=== PATIENT | male | born 1995 | race African-American/Black ===

== ENCOUNTER 2021-05-29 23:39 | Emergency (ER) | payer OTHER ==
[~2021-05-29] VITALS: Ht 177.8 cm; Wt 100.0 kg
[2021-05-29] MEDS ORDERED: ISOVUE-370 76% 100ML VIAL As Ordered ONE (23:59)
[2021-05-30 00:15] LABS: BASO % 0.3 % (0.0-1.0); HEMATOCRIT 42.5 % (42.0-52.0); HEMOGLOBIN 13.8 g/dl (13.5-17.5); LYMPH # 2.2 10^3/uL (1.5-5.0); LYMPH % 15.2 % (24.0-44.0); MEAN CORPUSCULAR HEMOGLOBIN 32.1 pg (27.0-33.0); MEAN CORPUSCULAR HGB CONC 32.5 g/dl (32.0-36.5); MEAN CORPUSCULAR VOLUME 98.8 fl (80.0-96.0); MONO # 1.5 10^3/uL (0.0-0.8); MONO % 10.2 % (2.0-8.0); NEUTROPHILS # 10.6 10^3/uL (1.5-8.5); NEUTROPHILS % 73.7 % (36.0-66.0); PLATELET COUNT, AUTOMATED 258 10^3/uL (150-450); WHITE BLOOD COUNT 14.4 10^3/uL (4.0-10.0)
[2021-05-30 00:30] LABS: ALBUMIN 4.1 GM/DL (3.2-5.2); ALT/SGPT 20 U/L (12-78); BILIRUBIN,TOTAL 0.8 MG/DL (0.2-1.0); BLOOD UREA NITROGEN 14 MG/DL (7-18); CALCIUM LEVEL 9.2 MG/DL (8.5-10.1); CARBON DIOXIDE LEVEL 30 MEQ/L (21-32); CHLORIDE LEVEL 107 MEQ/L (98-107); CREATININE FOR GFR 1.03 MG/DL (0.70-1.30); GLOMERULAR FILTRATION RATE > 60.0 (>60); GLUCOSE, FASTING 93 MG/DL (70-100); LIPASE 40 U/L (73-393); POTASSIUM SERUM 4.2 MEQ/L (3.5-5.1); SODIUM LEVEL 141 MEQ/L (136-145); TOTAL PROTEIN 6.8 GM/DL (6.4-8.2)
[2021-05-30] MEDS ORDERED: MORPHINE 4 MG/ML 1ML VIAL/SYRINGE IV ONE (01:25)
[2021-05-30 03:31] VITALS: BP 156/72
== END 2021-05-30 04:17 | disposition home or self-care (01) ==
LOC: M ED 23:39
DX: S62.315A Displaced fracture of base of fourth metacarpal bone, left hand, initial encounter for closed fracture (principal); S00.03XA Contusion of scalp, initial encounter; S30.1XXA Contusion of abdominal wall, initial encounter; H05.232 Hemorrhage of left orbit; Y04.0XXA Assault by unarmed brawl or fight, initial encounter; Y92.149 Unspecified place in prison as the place of occurrence of the external cause; Y93.9 Activity, unspecified; Y99.9 Unspecified external cause status; K04.7 Periapical abscess without sinus; K57.30 Diverticulosis of large intestine without perforation or abscess without bleeding
CPT/HCPCS: 70450; 70486; 71260; 72125; 73060; 73070; 73100; 73130; 73552; 73560; 74177; 80053; 83690; 85025; 96374; 99284; J2270; Q9967